=== PATIENT | female | born 2000 | race Caucasian/White ===

== ENCOUNTER 2020-11-05 18:49 | Emergency (ER) | payer OTHER ==
[~2020-11-05] VITALS: Ht 157.5 cm; Wt 52.0 kg
[2020-11-05 18:57] VITALS: BP 124/70
[2020-11-05] MEDS ORDERED: ACETAMINOPHEN 325MG TABLET PO ONE (19:45)
== END 2020-11-05 21:52 | disposition home or self-care (01) ==
LOC: ER 20:08
DX: S39.012A Strain of muscle, fascia and tendon of lower back, initial encounter (principal); J45.909 Unspecified asthma, uncomplicated; V49.49XA Driver injured in collision with other motor vehicles in traffic accident, initial encounter; Y93.9 Activity, unspecified; Y92.410 Unspecified street and highway as the place of occurrence of the external cause
CPT/HCPCS: 71045; 81025; 93005; 99283